=== PATIENT | female | born 1940 | race African-American/Black ===

== ENCOUNTER 2018-10-29 15:34 | Emergency (ER) | payer MEDICARE ==
[2018-10-29 16:39] LABS: #Eosinphils 0.1 thou/uL (0.0-0.7); #Lymphocytes 2.2 thou/uL (1.20-3.40); #Monocytes 1.1 thou/uL (0.11-0.59); #Neutrophils 10.1 thou/uL (1.40-6.50); %Basophils 0.1 % (0.0-1.0); %Eosinophils 0.8 % (0.0-10.0); %Lymphocytes 16.6 % (21.0-51.0); %Monocytes 7.8 % (0.0-10.0); %Neutrophils 74.7 % (42.0-75.0); Hemoglobin 14.9 g/dL (12.0-16.0); Mean Corpuscular HGB CONC 32.1 g/dL (32.0-36.0); Mean Corpuscular Hemoglobin 31.2 pg (27.0-31.0); Mean Corpuscular Volume 97.3 fL (78.0-98.0); Mean Platelet Volume 7.1 fL (7.4-10.4); Platelet Count 375 thou/uL (130-400); RBC Distribution Width 13.2 % (11.5-14.5); Red Blood Cell (RBC) Count 4.78 mill/uL (4.20-5.40); White Blood Cell (WBC) Count 13.5 thou/uL (4.8-10.8)
[2018-10-29] MEDS ORDERED: Clindamycin/D5W 900 mg/50 ml Premix Bag ONE ×2 (16:56→16:58)
[2018-10-29] MEDS ORDERED: Dexamethasone 10 MG/ML VIAL ONE (16:56)
[2018-10-29 17:45] LABS: Albumin 3.9 g/dL (3.4-4.8)
[2018-10-29 17:47] LABS: Calcium 8.8 mg/dL (7.8-10.44); Chloride 105 mmol/L (98-107); Potassium 3.7 mmol/L (3.5-5.1); Sodium 137 mmol/L (136-145)
[2018-10-29 17:48] LABS: Glucose 153 mg/dL (83-110); Protein, Total 6.9 g/dL (6.0-8.3)
[2018-10-29 17:49] LABS: Carbon Dioxide 20 mmol/L (23-31)
[2018-10-29 17:50] LABS: Anion Gap 16 mmol/L (10-20); Bilirubin, Total 0.5 mg/dL (0.2-1.2)
[2018-10-29 17:51] LABS: Alkaline Phosphatase 105 U/L (40-150)
[2018-10-29 17:52] LABS: BUN (Urea Nitrogen) 6 mg/dL (9.8-20.1); Calc. Creatinine Clearance 0 mL/min (70-130); Estimated GFR-MDRD 73
[2018-10-29 17:53] LABS: AST (SGOT) 12 U/L (5-34)
[2018-10-29 17:54] LABS: ALT (SGPT) 7 U/L (8-55)
--- NOTE | 2018-10-29 19:04 | CT ---
CT OF BRAIN PERFORMED WITHOUT CONTRAST ENHANCEMENT: 10/29/18 HISTORY: Headache. Left upper dental pain with swelling to left side of face. The ventricular and cisternal system shows mild atrophy. There is no signs of intracerebral hemorrhag e or extra-axial fluid collections. Basal ganglia calcifications are noted. Sinus changes will be dis cussed in the subsequent CT facial bone report. IMPRESSION: No acute intracranial abnormalities. POS: [facility]
[2018-10-29 19:46] LABS: Lactic Acid 1.2 mmol/L (0.5-2.2)
--- NOTE | 2018-10-29 20:04 | CT ---
CT OF FACIAL BONES PERFORMED WITHOUT CONTRAST ENHANCEMENT: 10/29/18 HISTORY: Left sided dental pain with swelling to left side of the face. The bones appear somewhat demineralized. The frontal sinuses are clear. there is pneumatization of th e right middle turbinate. There is mucosal disease involving the ostium region of both maxillary sinu ses with bilateral Noreen cells with obstructing mucosal change on the left and some moderate mucosal disease within the base of the left maxillary sinus. Anterior to the left maxilla is some asymmetric soft tissue swelling without any abscess formation. T here is underlying dental disease in this region which is probably the etiology of these findings. Epiglottis region appears unremarkable. Parapharyngeal spaces are clear. IMPRESSION: 1. Sinus disease with some mild to moderate mucosal change in the left maxillary sinus. 2. Soft tissue swelling adjacent to the left maxilla. This is associated with underlying dental disease of the maxilla in this region. No abscess formation seen. POS: [facility]
== END 2018-10-29 20:16 | disposition home or self-care (01) ==
LOC: ERS 15:34
DX: K04.7 Periapical abscess without sinus (principal); I10 Essential (primary) hypertension; F17.210 Nicotine dependence, cigarettes, uncomplicated; Z79.899 Other long term (current) drug therapy
CPT/HCPCS: 36415; 70450; 70486; 80053; 83605; 85025; 87040; 87149; 96365; 96367; J1100; J3370; J3490

== ENCOUNTER 2023-05-24 10:41 | Inpatient (IN) | payer OTHER ==
[~2023-05-24 10:41] MED LIST: Iopamidol-370 76% 500 ML MDV (1 ML CHARGE) ONE
[2023-05-24] MEDS ORDERED: cefTRIAXone (ROCEPHIN) 1 GM VIAL ONE (11:05)
[2023-05-24 11:13] LABS: Hemoglobin 10.9 g/dL (12.0-16.0); Mean Corpuscular HGB CONC 35.2 g/dL (32.0-36.0); Mean Corpuscular Hemoglobin 35.9 pg (27.0-31.0); Platelet Count 168 10x3/uL (130-400); RBC Distribution Width 15.5 % (11.5-14.5); Red Blood Cell (RBC) Count 3.04 mill/uL (4.20-5.40); White Blood Cell (WBC) Count 2.2 10x3/uL (4.8-10.8)
[2023-05-24 11:14] LABS: Mean Platelet Volume 9.7 fL (7.4-10.4)
[2023-05-24 11:17] LABS: Delete Auto Diff?? YES; Manual Diff?? YES
[2023-05-24 11:33] LABS: ALT (SGPT) 31 U/L (8-55); AST (SGOT) 73 U/L (5-34); Albumin 3.5 g/dL (3.4-4.8); Alkaline Phosphatase 94 U/L (40-110); Anion Gap 16 mmol/L (10-20); BUN (Urea Nitrogen) 14 mg/dL (9.8-20.1); Bilirubin, Total 1.4 mg/dL (0.2-1.2); Calc. Creatinine Clearance 0 mL/min (70-130); Calcium 8.5 mg/dL (7.8-10.44); Carbon Dioxide 28 mmol/L (23-31); Chloride 97 mmol/L (98-107); Estimated GFR 48; Globulin 3.4 g/dL (2.4-3.5); Glucose 105 mg/dL (83-110); Protein, Total 6.9 g/dL (5.8-8.1); Sodium 138 mmol/L (136-145)
[2023-05-24 11:36] LABS: Potassium 2.5 mmol/L (3.5-5.1)
[2023-05-24 11:46] LABS: Troponin I 0.093 ng/mL (< 0.028)
[2023-05-24] MEDS ORDERED: Potassium Chloride 20 MEQ TAB ONE (11:49)
[2023-05-24] MEDS ORDERED: Azithromycin 500 MG VIAL ONE (11:49)
[2023-05-24 12:04] LABS: SARS-CoV-2 NAA Rapid Test DETECTED (NotDetected)
[2023-05-24] MEDS ORDERED: Dexamethasone 10 MG/ML VIAL ONE (12:25)
[2023-05-24] MEDS ORDERED: Aspirin Chewable 81 MG TAB ONE (12:25)
[2023-05-24 12:30] LABS: Band 11 % (5-11); Hypochromia SLIGHT = 6-15 cells (100X) (0-5/hpf); Lymphocytes 35 % (21-51); Macrocytosis SLIGHT = 6-15 cells (100X) (0-5/hpf); Metamyelocyte 1 % (0-0); Monocytes 7 % (0-10); Neutrophil 41 % (42-75); Reactive Lymphocytes 5 % (0-10)
[2023-05-24 12:31] LABS: Platelet Adequacy Comment Appears Adequate
[2023-05-24] MEDS ORDERED: Senokot S 8.6-50 MG TAB PO PRN (12:43)
[2023-05-24] MEDS ORDERED: Acetaminophen 650 MG Suppository PR PRN (12:43)
[2023-05-24] MEDS ORDERED: Acetaminophen 325 MG TAB PO PRN (12:43)
[2023-05-24] MEDS ORDERED: Albuterol 200 PUFF (6.7GM INHALER) INH PRN (12:43)
[2023-05-24] MEDS ORDERED: Calcium Carbonate 500 MG ChewTAB PO PRN (12:43)
[2023-05-24 13:38] LABS: Actual Bicarbonate (HCO3a) 25.4 mEq/L (22-28); Analyzer IN Cardio ER; Base Excess (BEa) 1.7 mEq/L (-2.0 to +3.0); CO2 Tension 36.2 mmHg (35.0-45.0); Calcium, Ionized (arterial) 1.01 mmol/L (1.12-1.30); Carboxyhemoglobin (COHb) 0.3 gm% (0.0-3.0); Hematocrit-ABG 30 % (36.0-47.0); Hemoglobin (Hb) 10.2 g/dL (12.0-16.0); pH, Arterial 7.464 (7.35-7.45)
[2023-05-24 13:39] LABS: Potassium - ABG Lab 2.69 mmol/L (3.70-5.30); Puncture Site RBA
[2023-05-24 13:43] LABS: Hematocrit 30.7 % (36.0-47.0); Hemoglobin 10.7 g/dL (12.0-16.0); Mean Corpuscular HGB CONC 34.9 g/dL (32.0-36.0); Mean Corpuscular Hemoglobin 36.3 pg (27.0-31.0); Mean Corpuscular Volume 104.1 fl (78.0-98.0); Platelet Count 157 10x3/uL (130-400); RBC Distribution Width 15.5 % (11.5-14.5); Red Blood Cell (RBC) Count 2.95 mill/uL (4.20-5.40); White Blood Cell (WBC) Count 1.9 10x3/uL (4.8-10.8)
[2023-05-24 13:44] LABS: Delete Auto Diff?? YES; Manual Diff?? YES
[2023-05-24 14:36] LABS: Lactic Acid 1.9 mmol/L (0.5-2.2)
[2023-05-24 14:38] VITALS: BMI 22.7
[2023-05-24 14:42] LABS: Troponin I 0.057 ng/mL (< 0.028)
[2023-05-24] MEDS ORDERED: Benzonatate 100 MG CAP PO SCH (14:45)
[2023-05-24 14:46] LABS: Lymphocytes 44 % (21-51); Monocytes 12 % (0-10); Neutrophil 40 % (42-75); Reactive Lymphocytes 2 % (0-10)
[2023-05-24 14:47] LABS: Anisocytosis SLIGHT = 6-15 cells (100X) (0-5/hpf); Macrocytosis SLIGHT = 6-15 cells (100X) (0-5/hpf); Ovalocytes SLIGHT = 2-5 cells (100X) (0-1/hpf); Platelet Adequacy Comment Platelets Normal; Polychromasia SLIGHT = 2-3 cells (100X) (0-2/hpf); RBC Morph Comment Within Normal Limits
[2023-05-24] MEDS: Potassium Chloride 20 MEQ in Premix Bag 1 BAG IVPB SCH ×2 (14:52→21:33)
[2023-05-24] MEDS ORDERED: REMDESIVIR 200 MG in Sodium Chloride 0.9% 250 ML 210 ML IV SCH (15:00)
[2023-05-24] MEDS ORDERED: Melatonin 3 MG TAB PO PRN (15:41)
[2023-05-24] MEDS ORDERED: Potassium Bicarbonate/Cit Ac 20 MEQ TAB PO SCH (15:51)
[2023-05-24] MEDS ORDERED: BARICITINIB 2 MG TAB PO SCH (17:00)
[2023-05-24] MEDS: Ascorbic Acid 500 mg Chewable Tablet PO SCH ×2 (17:09→20:33)
[2023-05-24] MEDS: Benzonatate 100 MG CAP PO SCH ×2 (17:10→23:20)
[2023-05-24 18:16] LABS: Troponin I 0.043 ng/mL (< 0.028)
[2023-05-24] MEDS: Thiamine 100 MG TAB PO SCH (20:34)
[2023-05-24] MEDS: Atorvastatin Calcium 20 MG TAB PO SCH (20:34)
[2023-05-24] MEDS: Melatonin 3 MG TAB PO SCH (20:34)
[2023-05-24] MEDS: Famotidine 20 MG TAB PO SCH (20:35)
[2023-05-24] MEDS: Potassium Bicarbonate/Cit Ac 20 MEQ TAB PO SCH (20:35)
[2023-05-24] MEDS ORDERED: Dexamethasone 4 mg/ml Vial SLOW IVP SCH (21:00)
[2023-05-24] MEDS: Cefepime 1 GM in Sodium Chloride 0.9% 100 ML IVPB SCH (21:23)
[2023-05-24] MEDS: Metoprolol Tartrate 25 MG TAB PO SCH (21:26)
[2023-05-24] MEDS: Mometasone 100 MCG/Formoterol 5 MCG 120 PUFF INHALER INH SCH (22:14)
[2023-05-25 02:00] LABS: Anion Gap 16 mmol/L (10-20); BUN (Urea Nitrogen) 14 mg/dL (9.8-20.1); Calc. Creatinine Clearance 46 mL/min (70-130); Calcium 8.3 mg/dL (7.8-10.44); Carbon Dioxide 25 mmol/L (23-31); Chloride 103 mmol/L (98-107); Estimated GFR 63; Glucose 114 mg/dL (83-110); Potassium 3.2 mmol/L (3.5-5.1); Sodium 141 mmol/L (136-145)
[2023-05-25] MEDS: Ascorbic Acid 500 mg Chewable Tablet PO SCH ×4 (05:39→21:50)
[2023-05-25] MEDS: Benzonatate 100 MG CAP PO SCH ×3 (05:40→17:03)
[2023-05-25 06:09] LABS: Hematocrit 25.5 % (36.0-47.0); Hemoglobin 9.1 g/dL (12.0-16.0); Mean Corpuscular HGB CONC 35.7 g/dL (32.0-36.0); Mean Corpuscular Hemoglobin 36.4 pg (27.0-31.0); Mean Platelet Volume 10.1 fL (7.4-10.4); Platelet Count 174 10x3/uL (130-400); RBC Distribution Width 15.8 % (11.5-14.5); White Blood Cell (WBC) Count 1.9 10x3/uL (4.8-10.8)
[2023-05-25 06:14] LABS: Delete Auto Diff?? YES; Manual Diff?? YES
[2023-05-25 06:29] LABS: Lactic Acid 1.2 mmol/L (0.5-2.2)
[2023-05-25 06:32] LABS: ALT (SGPT) 31 U/L (8-55); AST (SGOT) 63 U/L (5-34); Albumin 2.9 g/dL (3.4-4.8); Alkaline Phosphatase 84 U/L (40-110); Anion Gap 11 mmol/L (10-20); BUN (Urea Nitrogen) 20 mg/dL (9.8-20.1); Bilirubin, Direct 0.3 mg/dL (0.1-0.3); Bilirubin, Total 0.5 mg/dL (0.2-1.2); Calc. Creatinine Clearance 53 mL/min (70-130); Calcium 8.1 mg/dL (7.8-10.44); Carbon Dioxide 28 mmol/L (23-31); Chloride 100 mmol/L (98-107); Estimated GFR 75; Glucose 106 mg/dL (83-110); Magnesium 2.2 mg/dL (1.6-2.6); Potassium 3.2 mmol/L (3.5-5.1); Protein, Total 6.6 g/dL (5.8-8.1); Sodium 136 mmol/L (136-145)
[2023-05-25 07:41] LABS: Anisocytosis SLIGHT = 6-15 cells HPF (0-5); Band 18 % (5-11); Burr Cells SLIGHT = 2-5 cells HPF (0-1); CellaVision Operator ID LAB.MJL; Dohle Bodies SLIGHT; Large Platelets 6.8 % (0-5); Lymphocytes 24 % (21-51); Macrocytosis SLIGHT = 6-15 cells HPF (0-5); Metamyelocyte 2 % (0-0); Monocytes 1 % (0-10); Myelocyte 4 % (0-0); Neutrophil 44 % (42-75); Nucleated RBC (Manual Ct) 1 % (0); Ovalocytes SLIGHT = 2-5 cells HPF (0-1); Platelet Adequacy Comment Platelets Normal; Poikilocytosis SLIGHT = 6-15 cells HPF (0-5); Polychromasia SLIGHT = 2-3 cells HPF (0-2); Reactive Lymphocytes 3 % (0-10); Spherocytes SLIGHT = 1-5 cells HPF (None Seen); Total Cell Count 103
[2023-05-25] MEDS: Cholecalciferol (Vitamin D3) 400 UNITS TAB PO SCH (08:49)
[2023-05-25] MEDS: Aspirin Chewable 81 MG TAB PO SCH (08:50)
[2023-05-25] MEDS: Potassium Bicarbonate/Cit Ac 20 MEQ TAB PO SCH ×3 (08:50→21:45)
[2023-05-25] MEDS: Thiamine 100 MG TAB PO SCH ×2 (08:50→20:17)
[2023-05-25] MEDS: Zinc Sulfate 220 MG CAP PO SCH (08:50)
[2023-05-25] MEDS: Famotidine 20 MG TAB PO SCH ×2 (08:50→20:18)
[2023-05-25] MEDS: Cefepime 1 GM in Sodium Chloride 0.9% 100 ML IVPB SCH ×2 (08:51→20:19)
[2023-05-25] MEDS: Dexamethasone 10 MG/ML VIAL SLOW IVP SCH (08:51)
[2023-05-25] MEDS: Metoprolol Tartrate 25 MG TAB PO SCH ×2 (08:51→20:18)
[2023-05-25] MEDS ORDERED: Zinc Sulfate 220 MG CAP PO SCH (09:00)
[2023-05-25] MEDS ORDERED: Clopidogrel Bisulfate 75 MG TAB PO SCH (09:00)
[2023-05-25] MEDS ORDERED: Ascorbic Acid 500 mg Chewable Tablet PO SCH (09:00)
[2023-05-25] MEDS ORDERED: BARICITINIB 2 MG TAB PO SCH (09:00)
[2023-05-25] MEDS ORDERED: REMDESIVIR 100 MG in Sodium Chloride 0.9% 250 ML 230 ML IV SCH (15:00)
[2023-05-25 15:23] LABS: O2 Tension (PaO2), arterial 59.7 mmHg (> 60.0)
[2023-05-25] MEDS: Mometasone 100 MCG/Formoterol 5 MCG 120 PUFF INHALER INH SCH ×2 (17:04→19:09)
[2023-05-25] MEDS: Melatonin 3 MG TAB PO SCH (20:16)
[2023-05-25] MEDS: Atorvastatin Calcium 20 MG TAB PO SCH (20:17)
[2023-05-26] MEDS: Ascorbic Acid 500 mg Chewable Tablet PO SCH ×4 (04:03→21:15)
[2023-05-26] MEDS: Benzonatate 100 MG CAP PO SCH ×4 (05:12→18:40)
[2023-05-26] MEDS: Mometasone 100 MCG/Formoterol 5 MCG 120 PUFF INHALER INH SCH ×2 (06:35→18:11)
[2023-05-26] MEDS: Potassium Bicarbonate/Cit Ac 20 MEQ TAB PO SCH ×3 (08:28→14:37)
[2023-05-26] MEDS: Cefepime 1 GM in Sodium Chloride 0.9% 100 ML IVPB SCH ×2 (08:28→21:14)
[2023-05-26] MEDS: Thiamine 100 MG TAB PO SCH ×2 (08:28→21:15)
[2023-05-26] MEDS: Famotidine 20 MG TAB PO SCH ×2 (08:28→21:14)
[2023-05-26] MEDS: Dexamethasone 10 MG/ML VIAL SLOW IVP SCH (08:28)
[2023-05-26] MEDS: Aspirin Chewable 81 MG TAB PO SCH (08:29)
[2023-05-26] MEDS: Cholecalciferol (Vitamin D3) 400 UNITS TAB PO SCH (08:29)
[2023-05-26] MEDS: Zinc Sulfate 220 MG CAP PO SCH (08:29)
[2023-05-26] MEDS: Metoprolol Tartrate 25 MG TAB PO SCH ×2 (08:29→21:15)
[2023-05-26] MEDS: BARICITINIB 2 MG TAB PO SCH (08:30)
[2023-05-26 08:31] LABS: ALT (SGPT) 32 U/L (8-55); AST (SGOT) 52 U/L (5-34); Alkaline Phosphatase 97 U/L (40-110); Anion Gap 15 mmol/L (10-20); BUN (Urea Nitrogen) 22 mg/dL (9.8-20.1); Bilirubin, Direct 0.2 mg/dL (0.1-0.3); Bilirubin, Total 0.5 mg/dL (0.2-1.2); Calc. Creatinine Clearance 51 mL/min (70-130); Calcium 8.6 mg/dL (7.8-10.44); Carbon Dioxide 28 mmol/L (23-31); Chloride 100 mmol/L (98-107); Estimated GFR 73; Glucose 151 mg/dL (83-110); Magnesium 2.5 mg/dL (1.6-2.6); Potassium 5.5 mmol/L (3.5-5.1); Protein, Total 7.2 g/dL (5.8-8.1); Sodium 137 mmol/L (136-145)
[2023-05-26] MEDS: Melatonin 3 MG TAB PO SCH (21:14)
[2023-05-26] MEDS: Atorvastatin Calcium 20 MG TAB PO SCH (21:15)
[2023-05-27] MEDS: Benzonatate 100 MG CAP PO SCH ×4 (00:14→18:13)
[2023-05-27] MEDS: Ascorbic Acid 500 mg Chewable Tablet PO SCH ×4 (05:14→20:38)
[2023-05-27 07:02] LABS: ALT (SGPT) 32 U/L (8-55); AST (SGOT) 39 U/L (5-34); Albumin 2.9 g/dL (3.4-4.8); Alkaline Phosphatase 95 U/L (40-110); Anion Gap 12 mmol/L (10-20); BUN (Urea Nitrogen) 26 mg/dL (9.8-20.1); Bilirubin, Direct 0.2 mg/dL (0.1-0.3); Bilirubin, Total 0.4 mg/dL (0.2-1.2); Calc. Creatinine Clearance 53 mL/min (70-130); Calcium 8.4 mg/dL (7.8-10.44); Carbon Dioxide 32 mmol/L (23-31); Chloride 99 mmol/L (98-107); Estimated GFR 76; Glucose 130 mg/dL (83-110); Magnesium 2.5 mg/dL (1.6-2.6); Potassium 4.5 mmol/L (3.5-5.1); Protein, Total 6.7 g/dL (5.8-8.1); Sodium 138 mmol/L (136-145)
[2023-05-27] MEDS: Zinc Sulfate 220 MG CAP PO SCH (09:17)
[2023-05-27] MEDS: Metoprolol Tartrate 25 MG TAB PO SCH ×2 (09:17→20:37)
[2023-05-27] MEDS: Dexamethasone 4 MG TAB PO SCH (09:17)
[2023-05-27] MEDS: Aspirin Chewable 81 MG TAB PO SCH (09:17)
[2023-05-27] MEDS: Famotidine 20 MG TAB PO SCH ×2 (09:17→20:37)
[2023-05-27] MEDS: Cholecalciferol (Vitamin D3) 400 UNITS TAB PO SCH (09:17)
[2023-05-27] MEDS: Cefepime 1 GM in Sodium Chloride 0.9% 100 ML IVPB SCH (09:17)
[2023-05-27] MEDS: Thiamine 100 MG TAB PO SCH ×2 (09:17→20:37)
[2023-05-27] MEDS: Mometasone 100 MCG/Formoterol 5 MCG 120 PUFF INHALER INH SCH ×2 (09:18→18:25)
[2023-05-27] MEDS: BARICITINIB 2 MG TAB PO SCH (09:21)
[2023-05-27] MEDS: Atorvastatin Calcium 20 MG TAB PO SCH (20:37)
[2023-05-27] MEDS: Melatonin 3 MG TAB PO SCH (20:37)
[2023-05-28] MEDS: Benzonatate 100 MG CAP PO SCH ×4 (01:33→17:44)
[2023-05-28] MEDS: Ascorbic Acid 500 mg Chewable Tablet PO SCH ×4 (05:21→20:53)
[2023-05-28 06:37] LABS: ALT (SGPT) 50 U/L (8-55); AST (SGOT) 54 U/L (5-34); Albumin 2.8 g/dL (3.4-4.8); Alkaline Phosphatase 90 U/L (40-110); Bilirubin, Direct 0.2 mg/dL (0.1-0.3); Bilirubin, Total 0.4 mg/dL (0.2-1.2); Protein, Total 6.3 g/dL (5.8-8.1)
[2023-05-28] MEDS: Famotidine 20 MG TAB PO SCH ×2 (08:48→20:54)
[2023-05-28] MEDS: Aspirin Chewable 81 MG TAB PO SCH (08:48)
[2023-05-28] MEDS: Metoprolol Tartrate 25 MG TAB PO SCH ×2 (08:48→20:53)
[2023-05-28] MEDS: Cholecalciferol (Vitamin D3) 400 UNITS TAB PO SCH (08:48)
[2023-05-28] MEDS: BARICITINIB 2 MG TAB PO SCH (08:48)
[2023-05-28] MEDS: Dexamethasone 4 MG TAB PO SCH (08:49)
[2023-05-28] MEDS: Zinc Sulfate 220 MG CAP PO SCH (08:49)
[2023-05-28] MEDS: Thiamine 100 MG TAB PO SCH ×2 (08:49→20:53)
[2023-05-28] MEDS: Mometasone 100 MCG/Formoterol 5 MCG 120 PUFF INHALER INH SCH ×2 (08:50→18:14)
[2023-05-28] MEDS: Atorvastatin Calcium 20 MG TAB PO SCH (20:53)
[2023-05-28] MEDS: Melatonin 3 MG TAB PO SCH (20:53)
[2023-05-29] MEDS: Benzonatate 100 MG CAP PO SCH ×5 (00:02→23:07)
[2023-05-29] MEDS: Ascorbic Acid 500 mg Chewable Tablet PO SCH ×4 (04:44→20:52)
[2023-05-29] MEDS: Dexamethasone 4 MG TAB PO SCH (10:33)
[2023-05-29] MEDS: Mometasone 100 MCG/Formoterol 5 MCG 120 PUFF INHALER INH SCH ×2 (10:33→17:45)
[2023-05-29] MEDS: Zinc Sulfate 220 MG CAP PO SCH (10:33)
[2023-05-29] MEDS: Famotidine 20 MG TAB PO SCH ×2 (10:34→20:52)
[2023-05-29] MEDS: Thiamine 100 MG TAB PO SCH ×2 (10:34→20:52)
[2023-05-29] MEDS: Aspirin Chewable 81 MG TAB PO SCH (10:34)
[2023-05-29] MEDS: Metoprolol Tartrate 25 MG TAB PO SCH ×2 (10:34→20:52)
[2023-05-29] MEDS: Cholecalciferol (Vitamin D3) 400 UNITS TAB PO SCH (10:34)
[2023-05-29] MEDS: BARICITINIB 2 MG TAB PO SCH (10:35)
[2023-05-29] MEDS: Melatonin 3 MG TAB PO SCH (20:52)
[2023-05-29] MEDS: Atorvastatin Calcium 20 MG TAB PO SCH (20:52)
[2023-05-30] MEDS: Ascorbic Acid 500 mg Chewable Tablet PO SCH ×2 (04:17→09:39)
[2023-05-30] MEDS: Benzonatate 100 MG CAP PO SCH ×2 (06:15→13:13)
[2023-05-30] MEDS: Dexamethasone 4 MG TAB PO SCH (09:37)
[2023-05-30] MEDS: Thiamine 100 MG TAB PO SCH (09:38)
[2023-05-30] MEDS: Zinc Sulfate 220 MG CAP PO SCH (09:38)
[2023-05-30] MEDS: Metoprolol Tartrate 25 MG TAB PO SCH (09:38)
[2023-05-30] MEDS: Famotidine 20 MG TAB PO SCH (09:38)
[2023-05-30] MEDS: Cholecalciferol (Vitamin D3) 400 UNITS TAB PO SCH (09:39)
[2023-05-30] MEDS: Aspirin Chewable 81 MG TAB PO SCH (09:39)
[2023-05-30] MEDS: BARICITINIB 2 MG TAB PO SCH (09:40)
[2023-05-30 13:06] VITALS: BP 150/73
[2023-05-30 13:47] VITALS: TEMP 97.4
== END 2023-05-30 16:10 | disposition home or self-care (01) | DRG 871 ==
LOC: ERS 10:41 → IMCU/EMU 12:40
PROVIDERS: ADMIT Internal Medicine; ATTEND Internal Medicine
PROC: XW033E5 Introduction of Remdesivir Anti-infective into Peripheral Vein, Percutaneous Approach, New Technology Group 5 (ICD-10-PCS; principal; 2023-05-24)
PROC: 4A033R1 Measurement of Arterial Saturation, Peripheral, Percutaneous Approach (ICD-10-PCS; 2023-05-24)
PROC: 8E0ZXY6 Isolation (ICD-10-PCS; 2023-05-24)
PROC: 3E0333Z Introduction of Anti-inflammatory into Peripheral Vein, Percutaneous Approach (ICD-10-PCS; 2023-05-24)
PROC: XW0DXM6 Introduction of Baricitinib into Mouth and Pharynx, External Approach, New Technology Group 6 (ICD-10-PCS; 2023-05-24)
PROC: 3E03329 Introduction of Other Anti-infective into Peripheral Vein, Percutaneous Approach (ICD-10-PCS; 2023-05-24)
DX: A41.89 Other specified sepsis (principal); I21.A1 Myocardial infarction type 2; J12.82 Pneumonia due to coronavirus disease 2019; U07.1 COVID-19; J96.01 Acute respiratory failure with hypoxia; J44.0 Chronic obstructive pulmonary disease with (acute) lower respiratory infection; I10 Essential (primary) hypertension; R65.20 Severe sepsis without septic shock; F17.210 Nicotine dependence, cigarettes, uncomplicated; I95.9 Hypotension, unspecified; I25.10 Atherosclerotic heart disease of native coronary artery without angina pectoris; E87.6 Hypokalemia; D64.9 Anemia, unspecified; I25.2 Old myocardial infarction; Z79.82 Long term (current) use of aspirin; Z79.899 Other long term (current) drug therapy; Z95.5 Presence of coronary angioplasty implant and graft
CPT/HCPCS: 36415; 36600; 71045; 71275; 80048; 80053; 80076; 82805; 83605; 83735; 83880; 84145; 84484; 85025; 85379; 86140; 87040; 94760; 96365; 96367; 96375; J0248; J0456; J0692; J0696; J1100; J1650; J3480; J3490; J7050; J8540; Q9967